=== PATIENT | female | born 1970 | race Caucasian/White ===

== ENCOUNTER → 2017-09-25 | Emergency (ER) | payer OTHER ==
[~2017-09-25] VITALS: Ht 165.1 cm; Wt 59.9 kg
[~2017-09-25] MED LIST: KETO10TA2 PO; NORFLEX100MG PO
== END | disposition home or self-care (01) ==
LOC: ER 08:17
DX: R10.32 Left lower quadrant pain (principal)

== ENCOUNTER 2021-12-27 12:53 | Emergency (ER) | payer OTHER ==
[~2021-12-27] VITALS: Ht 162.6 cm; Wt 53.5 kg
[2021-12-27] MEDS ORDERED: TAMOXIFEN CITRA20 MG PO (13:06)
[2021-12-27] MEDS ORDERED: SYNTHROID125 MCG PO (13:06)
[2021-12-27] MEDS ORDERED: ZITHROMAX500 MG PO (15:42)
[2021-12-27] MEDS ORDERED: TUSSI PRES-B L480 ML PO (15:42)
[2021-12-27] MEDS ORDERED: MEDROLPACK PO (15:42)
== END 2021-12-27 16:09 | disposition home or self-care (01) ==
LOC: ER 12:53
DX: B34.9 Viral infection, unspecified (principal); R09.3 Abnormal sputum